=== PATIENT | female | born 1965 | race Caucasian/White ===

== ENCOUNTER 2016-08-14 07:56 | Emergency (ER) | payer OTHER ==
[~2016-08-14] VITALS: Ht 162.6 cm; Wt 47.7 kg
[~2016-08-14 07:56] MED LIST: LORTAB PO; NO HOME MEDICATIONS
[2016-08-14 08:01] VITALS: TEMP 97.7
[2016-08-14] MEDS ORDERED: NAPROSYN500 MG PO (08:33)
[2016-08-14 09:00] VITALS: BP 137/77; PULSE 78
== END 2016-08-14 09:00 | disposition home or self-care (01) ==
LOC: COL.ER 07:56
DX: G56.01 Carpal tunnel syndrome, right upper limb (principal)

== ENCOUNTER 2021-12-07 16:14 | Emergency (ER) | payer OTHER ==
[~2021-12-07] VITALS: Ht 162.6 cm; Wt 50.0 kg
[~2021-12-07 16:14] MED LIST changes: +NAPROSYN500 MG PO
[2021-12-07 16:17] VITALS: TEMP 98.5
[2021-12-07] MEDS ORDERED: CEPHALEXIN500 M1 PO (17:09)
[2021-12-07 18:09] VITALS: BP 131/79; PULSE 85
== END 2021-12-07 18:10 | disposition home or self-care (01) ==
LOC: COL.ER 16:14
DX: S81.811A Laceration without foreign body, right lower leg, initial encounter (principal); S50.312A Abrasion of left elbow, initial encounter; F17.210 Nicotine dependence, cigarettes, uncomplicated; W01.198A Fall on same level from slipping, tripping and stumbling with subsequent striking against other object, initial encounter